=== PATIENT | female | born 1980 | race Caucasian/White ===

== ENCOUNTER 2018-09-06 14:21 | Emergency (ER) | payer BC ==
[2018-09-06] MEDS ORDERED: Ketorolac 60 MG/2 ML SDV IM ONE (15:08)
--- NOTE | 2018-09-06 16:08 | EDM.PDOC ---
ED HPI GENERAL MEDICAL PROBLEM - General Chief Complaint: Back Pain or Injury Stated Complaint: BACK PAIN Time Seen by Provider: 09/06/18 15:00 Source of Information: Reports: Patient History Limitations: Reports: No Limitations - History of Present Illness INITIAL COMMENTS - FREE TEXT/NARRATIVE: Alejandra is a 38 year old female who presents to the ED with c/o right lower back pain. She reports she has had chronic back pain for the past 19 years, with history of laminectomy in her 20's. Reports for a number of years she was on chronic narcotics. Reports in March providers stopped giving them to her. She does report that since quitting work at the [employer] her back has been doing much better. Reports she is typically able to tolerate her back pain, but has had a flare the past 5 days. Reports she normally takes Aleve for the pain. She reports she has only had two episodes over the past year of significant back pain. Reports she is unable to tolerate the pain anymore. She rates pain 10/10. Pain does not radiate down her legs. No injury to area. Denies any numbness/ tingling. Denies any weakness in her legs. Onset Date: 09/01/18 Duration: Getting Worse Location: Reports: Back Front/Back Body Image: 1 - Low back-right 06/08 Severity: Severe Improves with: Reports: None Worsens with: Reports: Movement Context: Reports: Activity Associated Symptoms: Reports: No Other Symptoms. Denies: Confusion, Chest Pain , Cough, cough w sputum, Diaphoresis, Fever/Chills, Headaches, Loss of Appetite , Malaise, Nausea/Vomiting, Rash, Seizure, Shortness of Breath, Syncope, Weakness, Other Treatments PALM AND BACK FORGER: Reports: Acetaminophen, NSAIDS Right Hip Pain Score (Numeric/FACES): 10 - Related Data Allergies Allergy/AdvReac Type Severity Reaction Status Date / Time diethylpropion HCl Allergy Irritabilit Verified 09/06/18 14:31 [From [facility]] y Home Meds: Home Meds Omeprazole 20 mg PO DAILY 06/25/14 [History] Acetaminophen/HYDROcodone [[place] 325-5 MG] 1 - 2 tab PO Q4H PRN 5 Days #30 tablet 09/06/18 [Rx] Cyclobenzaprine [Flexeril] 10 mg PO TID PRN #30 tab 09/06/18 [Rx] Past Medical History Musculoskeletal History: Reports: Back Pain, Chronic - Past Surgical History GI Surgical History: Reports: Bariatric Procedure Musculoskeletal Surgical History: Reports: Arthroscopic Procedure, Other (See Below) Other Musculoskeletal Surgeries/Procedures:: back surgery Social & Family History - Family History Family Medical History: Noncontributory - Tobacco Use Smoking Status *Q: Current Every Day Smoker Years of Tobacco use: 20 Packs/Tins Daily: 1 - Caffeine Use Caffeine Use: Reports: None - Recreational Drug Use Recreational Drug Use: No ED ROS GENERAL - Review of Systems Review Of Systems: ROS reveals no pertinent complaints other than HPI. ED EXAM,LOWER BACK PAIN/INJURY - Physical Exam Exam: See Below Exam Limited By: No Limitations General Appearance: Alert, WD/WN, Moderate Distress Back Exam: Decreased Range of Motion (lumbar spine), Muscle Spasm (right lower back). No: Paraspinal Tenderness, Vertebral Tenderness Extremities: Normal Inspection, Normal Range of Motion. No: Leg Pain Neurological: Alert, Normal Dorsiflexion, Normal Plantar Flexion, Normal Gait, Normal Reflexes, No Motor/Sensory Deficits Psychiatric: Other (angry) Skin Exam: Warm, Dry, Intact, Normal Color, No Rash Course - Vital Signs Last Recorded V/S: Last Vital Signs Temp 95.4 F 09/06/18 14:26 Pulse 79 09/06/18 14:26 Resp 20 09/06/18 14:26 BP 133/59 L 09/06/18 14:26 Pulse Ox 99 09/06/18 14:26 - Orders/Labs/Meds Orders: Active Orders 24 hr Category Date Time Status Lumbar Spine 2 or 3V [CR] Stat Exams 09/06/18 15:08 Taken Meds: Medications Discontinued Medications Generic Name Dose Route Start Last Admin Trade Name Freq PRN Reason Stop Dose Admin Ketorolac Tromethamine 60 mg 09/06/18 15:08 09/06/18 15:14 Toradol IM 09/06/18 15:09 60 mg ONETIME ONE Administration - Re-Assessments/Exams Free Text/Narrative Re-Assessment/Exam: Xray reveals no acute fracture or dislocation. Does have some degenerative changes. Patient reports improvement in pain following Toradol shot. Departure - Departure Time of Disposition: 16:03 Disposition: Home, Self-Care 01 Condition: Fair Clinical Impression: Low back pain Qualifiers: Chronicity: acute Back pain laterality: right Sciatica presence: without sciatica Qualified Code(s): M54.5 - Low back pain - Discharge Information *PRESCRIPTION DRUG MONITORING PROGRAM REVIEWED*: Not Applicable *COPY OF PRESCRIPTION DRUG MONITORING REPORT IN PATIENT LAURENT: Not Applicable Prescriptions: Acetaminophen/HYDROcodone [[place] 325-5 MG] 1 - 2 tab PO Q4H PRN 5 Days #30 tablet PRN Reason: Pain Cyclobenzaprine [Flexeril] 10 mg PO TID PRN #30 tab PRN Reason: pain Instructions: Back Pain, Adult, [id number] Forms: ED Department Discharge Additional Instructions: [place]land 1-2 tablet every 4 hours as needed for pain Flexeril 1 tab every 8 hours as needed for muscle spasm Alternate ice and heat to affected area as needed Activity as tolerated until symptoms improve Follow up with PCP if symptoms worsen or do not improve - My Orders Last 24 Hours: My Active Orders 09/06/18 15:08 Lumbar Spine 2 or 3V [CR] Stat - Assessment/Plan Last 24 Hours: My Active Orders 09/06/18 15:08 Lumbar Spine 2 or 3V [CR] Stat
== END 2018-09-06 16:14 | disposition home or self-care (01) ==
LOC: CC.ED 14:21
DX: M54.5 Low back pain (principal); M62.830 Muscle spasm of back; F17.210 Nicotine dependence, cigarettes, uncomplicated; Z88.8 Allergy status to other drugs, medicaments and biological substances; Z79.899 Other long term (current) drug therapy
CPT/HCPCS: 72100; 96372; 99283; J1885